=== PATIENT | male | born 1990 | race Caucasian/White ===

== ENCOUNTER 2019-02-02 17:44 | Emergency (ER) | payer MEDICAID, SELFPAY ==
[2019-02-02 17:50] VITALS: BP 130/86; PULSE 67; RESP 16; TEMP 36.6; O2SAT 98
--- NOTE | 2019-02-02 18:14 | W.ED.GENAD ---
Discharge Plan Disposition Patient Disposition: HOME Condition: Stable Discharge Details Chief Complaint: Orthopedic Clinical Impression: Left shoulder strain Primary Care Provider: Zara Munguia ED Provider: Sonia العراقي Home Meds and New Rx's Prescriptions: New ibuprofen 600 mg tablet 600 mg PO Q6H PRN (Reason: pain) Qty: 20 RF: 0 lidocaine [Lidoderm] 5 % adhesive patch,medicated 1 patch TP DAILY Qty: 15 RF: 0 Discontinued naproxen 500 MG tablet 500 mg PO BID Qty: 30 RF: 0 Discharge Instructions Instructions: Rotator Cuff Injury (ED) Additional Instructions: Alternate Tylenol and Motrin as needed and directed for pain. Alternate ice and heat to the affected area several times daily for 20 minutes at a time. Use the Lidoderm patch as directed. Follow-up with your primary care doctor in 1 week for reevaluation and for referral to orthopedics if symptoms do not improve or worsen. Return to the emergency department if you develop any worsening or new concerning symptoms. Discharge Data Discharge Physician: Sonia العراقي Medical Decision Making 28-year-old male who presents with left shoulder pain since this morning, worse with movement. 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 Denies any known injury. No bony tenderness but complaining of pain with range of motion and unable to fully lift arm due to pain. Limited abduction due to pain. Neurovascular intact. There is no deformity, evidence of rash or trauma. Patient offered x-ray but declines. Suspect most likely shoulder strain, sprain, tendinitis, possibly rotator cuff tear. Doubt fracture. Will place Lidoderm patch and give a dose of ibuprofen. Patient given a prescription for Lidoderm patch and ibuprofen. He is instructed on importance of rest, ice alternate Tylenol Motrin, follow-up with the primary care doctor and for referral to orthopedics if symptoms do not improve or worsen. Medical Records Medical records reviewed: Yes I reviewed the patient's medical records. HPI General Mode of arrival: ambulatory. Date/Time Provider Initiated Documentation: 02/02/19 17:54. Limitations to Documentation: no limitations. Information obtained by: patient. HPI Narrative: Patient is a 28-year-old male who presents with left shoulder pain since this morning. States the pain is worse with movement. Patient states he awoke with pain extending from his left superior lateral chest up into his left anterior and posterior shoulder. States the pain is worse with movement. 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 He has not taken any medication for his symptoms. He denies any weakness or numbness in his left arm. Related Data Home Medications Medication Instructions Recorded Confirmed ibuprofen 600 mg PO Q6H PRN #20 tab 02/02/19 lidocaine [Lidoderm] 1 patch TP DAILY #15 each 02/02/19 Previous Rx's Medication Instructions Recorded ibuprofen 600 mg PO Q6H PRN #20 tab 02/02/19 lidocaine [Lidoderm] 1 patch TP DAILY #15 each 02/02/19 Allergies Allergy/AdvReac Type Severity Reaction Status Date / Time No Known Allergies Allergy Unverified 04/16/17 08:15 General Stated Complaint: Orthopedic ALLAN: 4 Review of Systems Review of Systems All systems reviewed & are unremarkable except as noted in HPI and below PFSH Medical History No significant past medical history (Acute) Surgical History Arm fracture (Acute) Social History Smoking/Tobacco Use Status: Current every day Tobacco Type: smokeless tobacco Alcohol Intake: never Drug use: Daily Substance use type: marijuana Do you feel safe at home: Yes Do you feel safe in your relationship?: Yes Exam Const General: cooperative, healthy appearing and no acute distress HENMT Head: normal to inspection Face and sinus: normal facial exam Eyes General: appearance normal, both eyes and all related structures EOM: EOM intact bilaterally Neck Neck: normal visual inspection and No submandibular swelling Lymphatic: no lymphadenopathy noted Chest Chest: normal inspection of the chest Chest/axillae images: 1. Tenderness to palpation of left superior lateral chest with extension into the left shoulder. Resp Effort & Inspection: normal respiratory effort and able to speak in complete sentences Cardio Rate: regular rate Skin General skin exam: no rashes or lesions noted Neuro General: alert, awake and oriented x3 Cognition: normal cognition Speech: speech normal Motor: muscle tone normal throughout Sensory Exam: no sensory deficits noted Other: Normal left hand automotive window tinter. Muscle strength 5/5 left upper extremity. Extrem General: normal to inspection, full ROM, normal capillary refill, no calf tenderness bilaterally and no edema Other: Tenderness palpation left anterior shoulder. No tenderness palpation of left clavicle, no bony tenderness to left shoulder, humerus. Pain in left shoulder with range of motion. Only able to abduct to 60 degrees due to pain in left shoulder. Able to passively flex, extend, abduct, internally and externally rotate but with pain. Left radial and ulnar pulses intact. Cap refill less than 2 seconds. Psych Appearance: grossly normal Mental Status: mental status grossly normal Speech and Movement: speech and movement normal Affect: normal affect Course Vital Signs Temperature 97.9 F 02/02/19 17:50 Pulse 67 02/02/19 17:50 Respiratory Rate 16 02/02/19 17:50 Blood Pressure 130/86 02/02/19 17:50 Pulse Oximetry 98 02/02/19 17:50 Temperature 97.9 F 02/02/19 17:50 Temperature Source Skin 02/02/19 17:50 Pulse 67 02/02/19 17:50 Respiratory Rate 16 02/02/19 17:50 Respiratory Effort Non-Labored 02/02/19 17:53 Blood Pressure 130/86 02/02/19 17:50 Blood Pressure Position Supine 02/02/19 17:50 Pulse Oximetry 98 02/02/19 17:50 Oxygen Delivery Method Room Air 02/02/19 17:50 Oxygen Flow Rate 0 02/02/19 17:50 Pain Level 6 02/02/19 17:50
[2019-02-02] MEDS: Lidocaine 5% Patch 1 PATCH TP (18:22)
[2019-02-02] MEDS: Ibuprofen 600 MG TAB PO (18:22)
== END 2019-02-02 18:50 | disposition home or self-care (01) ==
LOC: ER 18:32
PROVIDERS: Emergency Provider Physician Assistant; PCP Nurse Practitioner Family
DX: S46.912A Strain of unspecified muscle, fascia and tendon at shoulder and upper arm level, left arm, initial encounter (principal); X50.0XXA Overexertion from strenuous movement or load, initial encounter
CPT/HCPCS: 99282

== ENCOUNTER 2019-07-09 13:50 | Emergency (ER) | payer MEDICAID, SELFPAY ==
--- NOTE | 2019-07-09 13:45 | DI.RAD_ITS ---
EXAM: XR FOOT LT COMPLETE INDICATION: LATERAL PAIN AFTER BLUNT TRAUMA. COMPARISON: No exams were available for comparison TECHNIQUE: 2D digital imaging was performed. FINDINGS: On the lateral view, there is a curvilinear lucency at the anterior aspect of the distal tibia suspic ious for a nondisplaced fracture. No other fracture or dislocation is seen. The soft tissues are un remarkable. IMPRESSION: Question of a nondisplaced fracture involving the anterior aspect of the articular surface of the dis herbert tibia. The findings were discussed with the Emergency Department on the date of the examination.
[2019-07-09 13:53] VITALS: BP 159/73; PULSE 56; RESP 16; TEMP 36.6; O2SAT 98
--- NOTE | 2019-07-09 14:01 | ED.GENADUL_ITS ---
Discharge Plan Disposition Patient Disposition: HOME Condition: Improving Discharge Details Chief Complaint: Orthopedic Clinical Impression: Fracture of distal end of tibia Primary Care Provider: Zara Munguia ED Provider: Phil Toussaint Discharge Instructions Additional Instructions: Please use Aircast/walking boot until seen for reevaluation in orthopedic clinic. May remove to apply ice to area to reduce pain and swelling. Return for worsening pain or any other acute concerns. Tylenol and ibuprofen as needed for pain. We will refer you to orthopedics as we discussed. Please call the office for follow-up time, the office #[phone]. 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 Able to walk but with pain. He was not injured in any other way. Left lateral foot and ankle swelling and tenderness on exam. Patient referred for x-ray which does not reveal underlying bony injury. There is a question of a curvilinear lucency of the distal anterior tibia. He is minimally tender in this area on reexamination. I will place an equalizer walking boot with follow- up in orthopedics for recheck. He understands homecare and follow-up precautions. HPI General Mode of arrival: ambulatory . Date/Time Provider Initiated Documentation: 07/09/19 13:52 . Limitations to Documentation: no limitations . Information obtained by: patient . History of Present Illness 28 year old M presents to the emergency department with the chief complaint of Left lateral foot pain after struck by a tree while walking. Able to walk, described as moderate, Quality is described as dull, and is localized to the left and lower extremity. Patient reports no radiation. Patient started experiencing this minute(s) and it has been constant. No relieving factors improve symptom(s), Other factors that worsen symptoms (Weightbearing) . Patient notes other (No other injury. No numbness or tingling. No lacerations.). Patient did receive the following treatments prior to arrival, none Related Data Allergies Allergy/AdvReac Type Severity Reaction Status Date / Time No Known Allergies Allergy Unverified 07/09/19 13:56 General Stated Complaint: Orthopedic ALLAN: 3 Review of Systems Narrative: See HPI, 4 systems reviewed and otherwise negative. [facility] Medical History No significant past medical history (Acute) Social History Smoking/Tobacco Use Status: Current every day Tobacco Type: smokeless tobacco Alcohol Intake: never Drug use: Daily Substance use type: marijuana Do you feel safe at home: Yes Do you feel safe in your relationship?: Yes Exam Narrative Exam Narrative: GEN: awake, alert, oriented 3. Pleasant, well groomed, interactive. HEAD: Normocephalic, atraumatic ENT: Mucous membranes moist, oropharynx unremarkable, External ear exam unremarkable EYES: PERRL, EOMI EXT: Full ROM, left lateral malleoli are and proximal foot tenderness to palpation. Minimal soft tissue swelling. 2+ DP present bilaterally. Neuro: Grossly normal neurologic exam, conversant, interactive. Psych: Speech fluent, thoughts congruent, affect normal Course Vital Signs Vital signs: Vital Signs Temperature 36.6 C 07/09/19 13:53 Pulse 56 L 07/09/19 13:53 Respiratory Rate 16 07/09/19 13:53 Blood Pressure 159/73 H 07/09/19 13:53 Pulse Oximetry 98 07/09/19 13:53 Temperature 36.6 C 07/09/19 13:53 Temperature Source Skin 07/09/19 13:53 Pulse 56 L 07/09/19 13:53 Respiratory Rate 16 07/09/19 13:53 Respiratory Effort 07/09/19 13:56 Blood Pressure 159/73 H 07/09/19 13:53 Blood Pressure Position Supine 07/09/19 13:53 Pulse Oximetry 98 07/09/19 13:53 Oxygen Delivery Method Room Air 07/09/19 13:53 Oxygen Flow Rate 0 07/09/19 13:53 Pain Level 5 07/09/19 13:53
[2019-07-09 15:08] VITALS: BP 159/73; PULSE 56; RESP 16; TEMP 36.6; O2SAT 98
== END 2019-07-09 14:05 | disposition home or self-care (01) ==
PROVIDERS: Emergency Provider Emergency Medicine; PCP Nurse Practitioner Family
DX: S82.392A Other fracture of lower end of left tibia, initial encounter for closed fracture (principal); S99.822A Other specified injuries of left foot, initial encounter; W20.8XXA Other cause of strike by thrown, projected or falling object, initial encounter; X50.9XXA Other and unspecified overexertion or strenuous movements or postures, initial encounter; Y99.0 Civilian activity done for income or pay
CPT/HCPCS: 27750; 99283; 73630; 99281; L4361

== ENCOUNTER 2022-01-27 12:29 | Emergency (ER) | payer OTHER, SELFPAY ==
--- NOTE | 2022-01-27 13:00 | DI.RAD_ITS ---
Exam(s) XR HAND RT COMPLETE EXAM: XR HAND RT COMPLETE CLINICAL HISTORY: Crush injury. TECHNIQUE: 2D digital imaging was performed. Three views. COMPARISON: CR RIGHT HAND COMPLETE from 12/29/2014 CR XR FOOT LT COMPLETE from 07/09/2019 FINDINGS: BONES: There is a small bony fragment seen adjacent to the 4th metacarpal head at the ulnar aspect. No additional fractures are seen. No bony destructive lesion is seen. JOINTS: No dislocation present. SOFT TISSUE: Swelling around 4th metacarpal head. IMPRESSION: Small fracture fragment at the head of the 4th metacarpal. DATA REPOSITORY: RADIATION DOSE DELIVERED:
[2022-01-27 13:02] VITALS: BP 195/167; PULSE 59; RESP 16; O2SAT 98
--- NOTE | 2022-01-27 13:03 | W.ED.GENAD ---
Discharge Plan Disposition Patient Disposition: HOME Condition: Stable Discharge Details Clinical Impression: Fracture of fourth metacarpal bone, Crush injury of hand Primary Care Provider: Zara Munguia ED Provider: Carli Keen Home Meds and New Rx's Prescriptions: No Action methadone 40 mg Tablet,Soluble 53 mg PO DAILY Discharge Instructions Instructions: Hand Fracture (ED), Crush Injury (ED) Additional Instructions: Wear the splint until follow-up with orthopedics. Do not get wet. You may loosen the Kristopher wrap if your fingers turn cool and numb or tingly. Rest ice compression elevation. Please take Tylenol or Ibuprofen with food every 4-6 hours as needed for pain and swelling. Follow up with primary care provider in 3-5 days. Return to ED sooner if any worsening or concerns. Increase oral fluids. Referrals: Zara Munguia [Primary Care Provider] - Amaury Rivero MD [ [facility] STAFF PHYSICIAN] - Discharge Data Discharge Date/Time-TO BE ENTERED AT DEPARTURE: 01/27/22 15:48 Medical Decision Making X-ray shows fourth MCP fracture. Imaging Data Radiologic Study: Imaging: X-Ray Radiologist's impression: Clinical indication: Injury or trauma; Other: Crush injury; Crushing; Hand; Right TECHNIQUE: Imaging protocol: Radiologic exam of the Right hand. Views: 3 or more views. COMPARISON: No relevant prior studies available. FINDINGS: Bones/joints: Small avulsion fracture distal 4th metacarpal head. Normal bone mineralization. Negative ulnar variance. Soft tissues: Soft tissue swelling of the 3rd and 4th digit. Possible air in the soft tissues of the 3rd finger proximal aspect versus artifact. IMPRESSION: 1. Fractured 4th distal metacarpal. 2. Possible free air involving the 3rd digit. 3. Soft tissue swelling of the 3rd and 4th digit. HPI General Mode of arrival: ambulatory. Date/Time Provider Initiated Documentation: 01/27/22 13:01. Limitations to Documentation: no limitations. Information obtained by: patient, RN notes reviewed and old records reviewed. HPI Narrative: 31-year-old male presents to the ER with right hand injury status post a crushing type injury approximately an hour prior to arrival while at work. Patient reports that he was working with some firewood and smashed his right hand with wood. He does have some superficial abrasions noted to his fourth digit and lateral hand. No obvious deformity. He does have tenderness over the knuckles into his distal fingers. Denies any wrist pain, no obvious swelling or deformity noted to his wrist. Has not taken anything prior to arrival Related Data Home Medications Medication Instructions Recorded Confirmed methadone 40 mg soluble tablet 53 mg PO DAILY 01/27/22 01/27/22 Allergies Allergy/AdvReac Type Severity Reaction Status Date / Time No Known Allergies Allergy Unverified 01/27/22 13:05 General ALLAN: 3 Review of Systems Musculoskeletal Musculoskeletal: Reports as per HPI, Reports arthralgias and Reports joint swelling PFSH All Active Problems (Updated 01/27/22 @ 15:17 by Carli Keen NP) Fracture of distal end of tibia (Acute) Fracture of fourth metacarpal bone (Acute) Crush injury of hand (Acute) Medical History (Updated 01/27/22 @ 15:17 by Carli Keen NP) No significant past medical history Surgical History Arm fracture Social History Smoking/Tobacco Use Status: Current every day Tobacco Type: smokeless tobacco Smoking risk assessment performed?: Yes Alcohol Intake: never Drug use: Daily Substance use type: marijuana Do you feel safe at home: Yes Do you feel safe in your relationship?: Yes Exam Extrem Hand/finger images: 1. Abrasion 2. Abrasion 3. Tenderness Procedures Orthopedic Splinting/Casting Injury #1: Side: right Upper Extremity Injury Location: hand Upper Extremity Immobilizer: volar splint and Kristopher wrap
[2022-01-27] MEDS: oxyCODONE 5 mg/Acetaminophen 325 mg TAB 1 TAB PO (13:18)
--- NOTE | 2022-01-27 13:56 | DI.VRAD_ITS ---
PROCEDURE INFORMATION: Exam: XR Right Hand Exam date and time: 01/27/2022 1:29 PM Age: 31 years old Clinical indication: Injury or trauma; Other: Crush injury; Crushing; Hand; Right TECHNIQUE: Imaging protocol: Radiologic exam of the Right hand. Views: 3 or more views. COMPARISON: No relevant prior studies available. FINDINGS: Bones/joints: Small avulsion fracture distal 4th metacarpal head. Normal bone mineralization. Negative ulnar variance. Soft tissues: Soft tissue swelling of the 3rd and 4th digit. Possible air in the soft tissues of the 3rd finger proximal aspect versus artifact. IMPRESSION: 1. Fractured 4th distal metacarpal. 2. Possible free air involving the 3rd digit. 3. Soft tissue swelling of the 3rd and 4th digit. Dictated and Authenticated by: Maranda Gee MD. Ordering:DUC Boyce MD
== END 2022-01-27 15:48 | disposition home or self-care (01) ==
PROVIDERS: Emergency Provider Registered Nurse Emergency; PCP Nurse Practitioner Family
DX: S67.21XA Crushing injury of right hand, initial encounter (principal); S62.304A Unspecified fracture of fourth metacarpal bone, right hand, initial encounter for closed fracture; F17.290 Nicotine dependence, other tobacco product, uncomplicated; W22.8XXA Striking against or struck by other objects, initial encounter; Y99.0 Civilian activity done for income or pay
CPT/HCPCS: 29125; 99283; 73130; 99281

== ENCOUNTER 2022-11-18 16:50 | Emergency (ER) | payer OTHER, SELFPAY ==
[2022-11-18 16:53] VITALS: BP 152/91; PULSE 86; RESP 18; TEMP 36; O2SAT 100
--- NOTE | 2022-11-18 17:04 | ED.GENADUL_ITS ---
Discharge Plan Disposition Patient Disposition: Home Condition: Good Discharge Details Clinical Impression: Hand laceration Primary Care Provider: Zara Munguia ED Provider: Susana Pitts Home Meds and New Rx's Prescriptions: Continued methadone 40 mg Tablet,Soluble 53 mg PO DAILY Discharge Instructions Instructions: Laceration (ED) Additional Instructions: Your x-rays are reassuring, no evidence of fracture. Movement and sensation suggest that you have intact nerves as well as ligaments. For more detailed exam, I would like for you to follow-up with orthopedics next week. Number listed below, please call to schedule follow-up appointment. They will assess the wound regarding suture removal, these will likely be removed in 14 days. Please keep current dressing on for the next 24 hours. After that time, you may replace with new sterile bandage but reapply the Kristopher wrap and tape the fingers together to help prevent any unneeded movement. Rest, ice, elevate. May continue with Tylenol and ibuprofen as needed for discomfort. Please discuss further pain management further with Addison. Please take the antibiotics as prescribed. Your tetanus was updated today. Please avoid any lifting with this hand. If you develop fever/chills, increased pain, redness, discharge or other new/worsening symptom please seek care urgently once again. Otherwise, please follow-up with orthopedics in 1 week. Referrals: Amaury Rivero MD [ [facility] STAFF PHYSICIAN] - Discharge Data Discharge Date/Time-TO BE ENTERED AT DEPARTURE: 11/18/22 19:46 Medical Decision Making Patient is a 32-year-old [id number] male presenting today with chief complaint of laceration to the right hand. 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 Denies other injury at the time of the incident. Reports severe pain. Denies numbness, paresthesias. No limitations to ROM. On exam, patient appears very anxious and uncomfortable. He is pacing, holding his hand over his head. He is difficult to exam secondary to his anxiety. Initially declined any type of local anesthetic. He has 2+ distal pulses. Sensation intact, good ROM. Able to flex and form fist. Not able to examine resistance strength secondary to his anxiety and pain. He has a curvilinearr laceration over the palmar aspect of his hand which appears deep, not able to see bone at this point but will need to obtain XR for further evaluation. Will give APAP, NSAID and oxycodone. Dripped 1% Lidocaine into the wound as patient was declining and injections. Patient evaluated by Dr. Rivero. Evaluation is limited secondary to patient's significant anxiety. However, no evidence of deep structure involvement. X-ray was obtained without any evidence of fracture. Spoke with Dr. Rivero again who reviewed the x-rays and advised take deep simple, loose sutures. We will give IM Versed. This is not for restraint or sedation but rather to help with his anxiety and allow him to calm down so that we are able to perform the closure. Patient given 2 doses of IM Versed. Kept on monitor, no respiratory difficulty. Patient had difficulty tolerating this, tried multiple times to anesthetize and medicate but much of this seemed to be associate with anxiety. Please see wound note. This was copiously irrigaated with sterile saline. Muscle appearsr dis rupted but good ROM. Ligaments were visible but no distinct area of injury/disuption. Area was anesthetized with 1% Lidocaine plain, 10cc used. After wound closure, patient started on abx. Bacitracin and sterile bandage applied. Fingered love taped to help prevent excess stress on the wound. He w ill f/u with Dr. Rivero next week. Strict return precautions given. Discussed pain management. Advised he discuss his pain further with MARISELA as well if needed. Tetanus updated. All of his questions and concerns were addressed, he is in agreement with this plan. Mom and signficant other at bedside throughout procedure. HPI General Date/Time Provider Initiated Documentation: 11/18/22 16:58 . Limitations to Documentation: no limitations . Information obtained by: patient, family and RN notes reviewed . History of Present Illness 32 year old M presents to the emergency department with the chief complaint of right hand laceration, described as severe, with intensity rated at 10. and is localized to the right and upper extremity. Patient reports no radiation. Patient started experiencing this minute(s) and it has been constant. Immobilization improves symptom(s), Movement worsens symptoms . Patient notes no other symptoms.. Patient did receive the following treatments prior to arrival, none Related Data Home Medications Medication Instructions Recorded Confirmed methadone 40 mg soluble tablet 53 mg PO DAILY 01/27/22 01/27/22 Allergies Allergy/AdvReac Type Severity Reaction Status Date / Time No Known Allergies Allergy Unverified 01/27/22 13:05 General Stated Complaint: Laceration ALLAN: 4 Review of Systems Constitutional Constitutional: Reports as per HPI, Denies chills and Denies fever(s) Musculoskeletal Musculoskeletal: Reports as per HPI, Denies muscle weakness, Denies numbness, Denies radiating pain into limb and Denies stiffness Integumentary/Breasts Skin/Breast: Reports as per HPI Neurologic Neurologic: Reports as per HPI, Denies numbness, Denies sensory deficit and Denies paresthesias PFS All Active Problems Fracture of distal end of tibia (Acute) Hand laceration (Acute) Medical History No significant past medical history Surgical History Arm fracture Social History Smoking/Tobacco Use Status: Current every day Tobacco Type: smokeless tobacco Smoking risk assessment performed?: Yes Alcohol Intake: never Drug use: Daily Substance use type: marijuana Do you feel safe at home: Yes Do you feel safe in your relationship?: Yes Exam Const General: healthy appearing, uncomfortable, no acute distress, well developed and anxious Nutritional Appearance: average body habitus and well nourished Orientation: alert and awake Resp Effort & Inspection: normal respiratory effort, able to speak in complete sentences and no respiratory distress Cardio Rate: regular rate Rhythm: regular rhythm Skin Trauma: laceration Neuro General: patient alert and patient awake Cognition: normal cognition Speech: speech normal Gait: normal gait Sensory Exam: no sensory deficits noted Extrem Hand/finger images: 1. Curvilinear laceration into deep strructures. Not actively bleeding. Exam is limited. He has intact distal pulses. Full ROM of digits. Sensation intatct in all digits. Able to flex at all joints although testing against resistance was not able to be completed. Full ROM of wrist. Appears to have muscular involvement no visible bone. Psych Appearance: grossly normal and well kempt Mental Status: mental status grossly normal Speech and Movement: speech and movement normal Course Vital Signs Vital signs: Vital Signs Temperature 36.0 C L 11/18/22 16:53 Pulse 86 11/18/22 16:53 Respiratory Rate 18 11/18/22 16:53 Blood Pressure 152/91 H 11/18/22 16:53 Pulse Oximetry 100 11/18/22 16:53 Temperature 36.0 C L 11/18/22 16:53 Temperature Source Oral 11/18/22 16:53 Pulse 86 11/18/22 16:53 Respiratory Rate 18 11/18/22 16:53 Blood Pressure 152/91 H 11/18/22 16:53 Blood Pressure Position Sitting 11/18/22 16:53 Pulse Oximetry 100 11/18/22 16:53 Procedures Laceration Laceration 1: Site: hand Side (If applicable): right Size (cm): 9 Description: irregular Depth: involves muscle layer Local Anesthetic: Lidocaine 1% Amount of anesthesia used (mL): 12 Pre-repair: wound explored, irrigated extensively and deep structures intact (muscles are disrupted, the ligaments are intact) Skin layer closed with: nylon Size (cm): 4-0 Number of sutures: 8 Technique: simple, interrupted
[2022-11-18] MEDS: Ibuprofen 600 MG TAB PO (17:17)
[2022-11-18] MEDS: Acetaminophen 500 MG TAB 1000 MG PO (17:17)
[2022-11-18] MEDS: oxyCODONE 5 MG TAB PO (17:17)
--- NOTE | 2022-11-18 17:23 | W.ORTHOCONSU ---
Date of service: 11/18/22 Time of Service: 17:10 History of Present Illness History of Present Illness Chief Complaint: Right Hand Injury Narrative: Noble is a 32-year-old who injured his right hand from a forklift. He presented to the emergency department with an obvious laceration to the right hand. Examination and history was challenging. He paced around the room to move the arm above his head and below his head frequently during the examination and the interview. He endorsed normal sensation of the fingers. He reported pain throughout. He says that he fractured this hand multiple places previously but was unclear on what he broke and how was treated although it did not seem to require any surgery. Consults Consult date: 11/18/22 Requesting physician: Susana Pitts Consult Reason Right Hand Injury Assessment and Plan Assessment and plan (1) Hand laceration: Status: Acute Assessment and plan: Noble is a 32-year-old who unfortunately suffered a crush and tearing injury to the right hand. This is a significant soft tissue injury about the hand. However, fortunately it seems to spare the deeper structures. There is no active fracture. There is significant soft tissue damage but appears to the soft tissue is involving the subtendinous tissue down to the fascia. I did not detect any flexor tendon injury. He also does not seem to have any neurovascular injury. Nevertheless, this is a very difficult examination at this point I recommend that we clean the wound and closed it loosely. He should be given antibiotics for at least 2 to 3 days. I will see him back in the office within a week to evaluate the wound but also do a more complete examination when his pain has settled down. Splinting would be recommended at this time to allow the soft tissues to heal. Review of Systems All systems reviewed & are unremarkable except as noted in HPI and below PFSH All Active Problems Fracture of distal end of tibia (Acute) Hand laceration (Acute) Medical History No significant past medical history Surgical History Arm fracture Social History Smoking/Tobacco Use Status: Current every day Tobacco Type: smokeless tobacco Smoking risk assessment performed?: Yes Alcohol Intake: never Drug use: Daily Substance use type: marijuana Do you feel safe at home: Yes Do you feel safe in your relationship?: Yes Exam Extrem Other: A brief evaluation and examination of the right hand was performed. This was limited due to his pacing and constant motion. However, this showed a nearly 8 cm curvilinear laceration over the palmar aspect of the hand, biased slightly ulnarly from the wrist flexion crease into the 3?4 webspace. There is deep tissue exposed including the musculature of the hyperthenar region. There was no active bleeding. He was able to demonstrate active finger flexion including FDP and FDS although it was limited in his evaluation. He did report intact sensation although it was difficult to perform anything more than gross sensation given his discomfort. There is no gross contamination. The finger had a normal appearance. There is also a dorsal laceration approxi-2 cm. There is pain to palpation throughout the hand including the fifth and fourth metacarpals. Cap refills less than 2 seconds. No apparent dysvascularity of the finger of the hand. Results Last Vital Signs Temp 36.0 C L 11/18/22 16:53 Pulse 86 11/18/22 16:53 Resp 18 11/18/22 16:53 BP 152/91 H 11/18/22 16:53 Pulse Ox 100 11/18/22 16:53 Imaging Imaging Studies: X-ray of the right hand was performed and showed no sign of fracture. There is obviously a large soft tissue defect.
--- NOTE | 2022-11-18 17:25 | DI.RAD_ITS ---
Exam(s) XR HAND RT COMPLETE EXAM: XR HAND RT COMPLETE CLINICAL HISTORY: laceration, fork lift injury ulnar side. TECHNIQUE: 2D digital imaging was performed. Three views. COMPARISON: CR,XR XR HAND RT COMPLETE from 01/27/2022 FINDINGS: BONES: Exam limited by flexion of the fingers and overlap no acute fracture is present. No bony destr uctive lesion is seen. JOINTS: No dislocation present. SOFT TISSUE: Large soft tissue laceration. No foreign body IMPRESSION: Soft tissue laceration. DATA REPOSITORY: RADIATION DOSE DELIVERED:
--- NOTE | 2022-11-18 17:32 | DI.VRAD_ITS ---
PROCEDURE INFORMATION: Exam: XR Right Hand Exam date and time: 11/18/2022 5:22 PM Age: 32 years old Clinical indication: Injury or trauma; Hand; Right; Injury date: 11/18/22; Patient HX: Laceration, fork lift injury ulnar side TECHNIQUE: Imaging protocol: Radiologic exam of the right hand. Views: 3 or more views. COMPARISON: CR XR HAND RT COMPLETE 01/27/2022 1:29 PM FINDINGS: Bones/joints: Normal. Soft tissues: Normal. IMPRESSION: No acute findings. Dictated and Authenticated by: Vidal Burgos MD. Ordering:SHANI Meza MD
[2022-11-18] MEDS: Midazolam 2 MG/2 ML VIAL IM ×2 (18:05→18:45)
[2022-11-18] MEDS: Lidocaine 1% Multi-Dose 50 ML VIAL IJ (18:44)
[2022-11-18] MEDS: Cephalexin 500 MG CAP, 4 CAPS/BTL PO (19:44)
== END 2022-11-18 19:46 | disposition home or self-care (01) ==
PROVIDERS: Emergency Provider Physician Assistant; PCP Nurse Practitioner Family
DX: S61.411A Laceration without foreign body of right hand, initial encounter (principal); W31.89XA Contact with other specified machinery, initial encounter; Y93.89 Activity, other specified; Y92.89 Other specified places as the place of occurrence of the external cause; Y99.9 Unspecified external cause status; Z23 Encounter for immunization
CPT/HCPCS: 12004; 90471; 96374; 96376; 99283; 73130; J2250